=== PATIENT | male | born 1970 | race Two or more races ===

== ENCOUNTER 2019-03-03 13:20 | Inpatient (IN) | payer BC ==
[~2019-03-03] VITALS: Ht 170.2 cm; Wt 120.4 kg
[2019-03-03] MEDS ORDERED: NITROGLYCERIN 0.4MG TABLET SL SL PRN (16:00)
[2019-03-03] MEDS ORDERED: ASPIRIN 81MG TABLET PO ONE (16:00)
[2019-03-03 16:22] LABS: BASOPHILS % 0.6 % (0.0-2.0); EOSINOPHILS % 3.1 % (0.0-5.0); HEMATOCRIT. 49.6 % (42.0-52.0); HEMOGLOBIN. 16.9 g/dL (14.0-18.0); LYMPHOCYTES % 26.7 % (20.0-50.0); MEAN CORPUSCULAR HEMOGLOBIN 30.4 pg (28.0-32.0); MEAN CORPUSCULAR VOLUME 89.1 fL (80.0-94.0); MEAN PLATELET VOLUME 7.6 fl (7.4-10.4); MONOCYTES % 10.5 % (2.0-8.0); NEUTROPHILS % 59.1 % (40.0-76.0); PLATELET 331 x1000/uL (130-400); RED BLOOD CELL COUNT 5.57 mill/uL (4.7-6.1)
[2019-03-03 16:23] LABS: CHLORIDE 111 mEq/L (98-107)
[2019-03-03] MEDS ORDERED: ONDANSETRON HCL 4MG/2ML INJ IV STA (16:44)
[2019-03-03] MEDS ORDERED: MORPHINE SULFATE 4 MG/ML CPJ (NOT FOR IM USE) IV STA (16:44)
[2019-03-03] MEDS ORDERED: ENOXAPARIN 120MG/0.8ML SYR SUBCUT ONE (16:45)
[2019-03-03] MEDS ORDERED: ACETAMINOPHEN 325MG TABLET PO PRN (17:45)
[2019-03-03] MEDS ORDERED: DOCUSATE SODIUM 100MG CAPSULE PO PRN (17:45)
[2019-03-03] MEDS ORDERED: ONDANSETRON HCL 4MG/2ML INJ IV PRN (17:45)
[2019-03-03] MEDS ORDERED: HYDROCODONE/ACETAMINOPHEN 5/325MG TABLET PO PRN (17:45)
[2019-03-03] MEDS ORDERED: MORPHINE SULFATE 2 MG/ML CPJ (NOT FOR IM USE) IV PRN (17:45)
[2019-03-03] MEDS ORDERED: CLONIDINE 0.1MG TABLET PO PRN (17:45)
[2019-03-03 22:00] VITALS: BP 138/84
[2019-03-04] VITALS (23 sets, daily range): BP systolic 57–166; BP diastolic 19–110
[2019-03-04 07:31] LABS: BASOPHILS % 0.7 % (0.0-2.0); HEMATOCRIT. 46.9 % (42.0-52.0); HEMOGLOBIN. 16.1 g/dL (14.0-18.0); LYMPHOCYTES % 28.6 % (20.0-50.0); MEAN CORPUSCULAR HEMOGLOBIN 30.7 pg (28.0-32.0); MEAN CORPUSCULAR VOLUME 89.2 fL (80.0-94.0); MEAN PLATELET VOLUME 7.8 fl (7.4-10.4); MONOCYTES % 10.5 % (2.0-8.0); NEUTROPHILS % 56.2 % (40.0-76.0); PLATELET 333 x1000/uL (130-400); RED BLOOD CELL COUNT 5.25 mill/uL (4.7-6.1); RED CELL DISTRIBUTION WIDTH 12.7 % (11.6-14.6)
[2019-03-04 08:21] LABS: CHLORIDE 110 mEq/L (98-107)
[2019-03-04 08:28] LABS: LDL CHOLESTEROL 172 mg/dL (5-100)
[2019-03-04 08:29] LABS: CREATINE KINASE 363 IU/L (39-308)
[2019-03-04 08:30] LABS: HDL CHOLESTEROL 29 mg/dL (40-59)
[2019-03-04 08:32] LABS: CREATINE KINASE MB FRACTION 3.8 ng/mL (0.5-3.6)
[2019-03-04] MEDS: AMLODIPINE 10MG TABLET PO SCH (08:37)
[2019-03-04] MEDS: ASPIRIN 81MG EC TABLET PO SCH (08:37)
[2019-03-04] MEDS ORDERED: ENOXAPARIN 30MG/0.3ML SYR SUBCUT SCH (09:00)
[2019-03-04] MEDS ORDERED: NITROGLYCERIN 50MCG/ML 10ML VIAL (CATH LAB) IV ONE (11:03)
[2019-03-04] MEDS ORDERED: HEPARIN SODIUM 1,000 UNIT/1ML VIAL IV ONE (11:03)
[2019-03-04] MEDS ORDERED: LIDOCAINE HCL 1% 20ML VIAL (Pyxis) INJ ONE ×2 (12:38→15:29)
[2019-03-04] MEDS ORDERED: FENTANYL CITRATE/PF 50MCG/ML 2ML VIAL ONE ×4 (12:53→20:20)
[2019-03-04] MEDS ORDERED: MIDAZOLAM HCL 2 MG/2 ML VIAL ONE ×3 (12:53→16:19)
[2019-03-04] MEDS ORDERED: IOHEXOL-300 100 ML BOTTLE ONE (13:21)
[2019-03-04] MEDS ORDERED: CLOPIDOGREL 75MG TABLET ONE (13:50)
[2019-03-04] MEDS ORDERED: ASPIRIN 325MG EC TABLET PO ONE (13:50)
[2019-03-04] MEDS ORDERED: DOPAMINE 400MG/250ML PREMIX 250 ML IV ONE (14:55)
[2019-03-04] MEDS ORDERED: IODIXANOL 320MG/ML 200ML BOTTLE ONE (14:58)
[2019-03-04] MEDS ORDERED: HYDROMORPHONE HCL/PF 2MG/ML (OR) ONE (15:37)
[2019-03-04] MEDS ORDERED: BACITRACIN 15GM TUBE TOP ONE (16:16)
[2019-03-04] MEDS ORDERED: THROMBIN (BOVINE) 5000 UNITS/VIAL TOP ONE ×2 (16:16→16:17)
[2019-03-04] MEDS ORDERED: SKIN ADHESIVE 0.7 GM EA TOP ONE (16:16)
[2019-03-04] MEDS ORDERED: BACITRACIN 50,000 UNITS/VIAL ONE (16:17)
[2019-03-04] MEDS ORDERED: HEPARIN 1000 UNITS/ML 10ML ONE (16:18)
[2019-03-04] MEDS ORDERED: NOREPINEPHRINE 4 MG in DEXT 5% WATER 246 ML IV NR (17:00)
[2019-03-04] MEDS ORDERED: AMINOCAPROIC ACID 10,000 MG in SODIUM CHLORIDE 0.9% 460 ML IV SCH (17:00)
[2019-03-04] MEDS ORDERED: INSULIN REGULAR (DRIP) 100 UNITS in SODIUM CHLORIDE 0.9% 99 ML IV NR (17:00)
[2019-03-04] MEDS ORDERED: EPINEPHRINE 4 MG in DEXT 5% WATER 246 ML IV NR (17:00)
[2019-03-04] MEDS ORDERED: DOBUTAMINE HCL 250 MG in DEXT 5% WATER 230 ML IV NR (17:00)
[2019-03-04] MEDS ORDERED: CEFAZOLIN 2,000 MG in DEXT 5% WATER 100 ML IV NR (17:00)
[2019-03-04] MEDS ORDERED: PHENYLEPHRINE 10 MG in DEXT 5% WATER 249 ML IV NR (17:00)
[2019-03-04] MEDS ORDERED: DEL NIDO ELECTROLYTE-S(PH 7.4) 1,000 ML IV SCH (17:00)
[2019-03-04] MEDS ORDERED: DOBUTAMINE 250MG PREMIX 250 ML IV NR (17:00)
[2019-03-04] MEDS ORDERED: PAPAVERINE HCL 180MG in SODIUM CHLORIDE 0.9% 24ML IV NR (17:00)
[2019-03-04] MEDS ORDERED: NICARDIPINE 50 MG in NS 250 ML IV NR (17:00)
[2019-03-04] MEDS ORDERED: SUCCINYLCHOLINE CHLORIDE 200MG/10ML IV ONE (17:12)
[2019-03-04] MEDS ORDERED: ATROPINE SULFATE 1MG/10ML SYR IV PRN (17:30)
[2019-03-04] MEDS ORDERED: ACETAMINOPHEN 325MG TABLET PO PRN (17:30)
[2019-03-04] MEDS ORDERED: HEPARIN 10,000 UNITS/ML VIAL ONE (17:33)
[2019-03-04] MEDS ORDERED: MAGNESIUM SULFATE 5GM/10ML VIAL IV ONE (19:34)
[2019-03-04] MEDS ORDERED: NITROGLYCERIN 50MG PREMIX 250 ML IV PRN (19:55)
[2019-03-04] MEDS ORDERED: DEXT 5%/0.45% NACL 1000ML 1,000 ML IV SCH (19:55)
[2019-03-04] MEDS ORDERED: DOPAMINE 400MG/250ML PREMIX 250 ML IV PRN (19:55)
[2019-03-04] MEDS ORDERED: SODIUM CHLORIDE 0.9% 500 ML IV PRN (19:55)
[2019-03-04] MEDS ORDERED: MAGNESIUM 2 G PREMIX 50 ML IV PRN (20:00)
[2019-03-04] MEDS ORDERED: CALCIUM CHLORIDE 3,000 MG in DEXT 5% WATER 250 ML IV PRN (20:00)
[2019-03-04] MEDS ORDERED: EPINEPHRINE 1 MG in DEXT 5% WATER 250 ML IV SCH (20:00)
[2019-03-04] MEDS ORDERED: OXYCODONE HCL/ACETAMINOPHEN 5/325MG TABLET PO PRN (20:00)
[2019-03-04] MEDS ORDERED: MAGNESIUM SULFATE 3 GM in DEXT 5% WATER 100 ML IV PRN (20:00)
[2019-03-04] MEDS ORDERED: MAGNESIUM 1 G PREMIX 100 ML IV PRN (20:00)
[2019-03-04] MEDS ORDERED: MORPHINE SULFATE 2 MG/ML CPJ (NOT FOR IM USE) IV PRN (20:00)
[2019-03-04 20:56] LABS: BG BASE EXCESS -5.7 mmol/L (-2.0-2.0); BG CARBOXYHEMOGLOBIN 0.7 % (0.5-1.5); BG DEOXYHEMOGLOBIN 4.8 % (0.0-5.0); BG FRACTION INSPIRED OXYGEN 100; BG HCO3 ACT 22.9 mmol/L (22.0-26.0); BG METHEMOGLOBIN 0.2 % (0.0-1.5); BG OXYGEN SATURATION 95.2 % (92.0-98.5); BG OXYHEMOGLOBIN 94.3 % (94.0-97.0); BG PCO2 57.8 mmHg (35.0-45.0); BG PH 7.216 (7.350-7.450); BG SAMPLE SITE A-LINE; BG TOTAL HEMOGLOBIN 15.2 g/dL (12.0-18.0); BG VENT MODE MASK - NRB
[2019-03-04] MEDS ORDERED: METOPROLOL TARTRATE 50MG TABLET PO SCH (21:00)
[2019-03-04 21:10] LABS: CHLORIDE 106 mEq/L (98-107); PROTHROMBIN TIME 10.2 sec (9.6-11.0)
[2019-03-04 21:11] LABS: BASOPHILS % 0.2 % (0.0-2.0); EOSINOPHILS % 0.2 % (0.0-5.0); HEMATOCRIT. 41.1 % (42.0-52.0); HEMOGLOBIN. 13.8 g/dL (14.0-18.0); LYMPHOCYTES % 7.2 % (20.0-50.0); MEAN CORPUSCULAR HEMOGLOBIN 29.9 pg (28.0-32.0); MEAN CORPUSCULAR VOLUME 89.2 fL (80.0-94.0); MEAN PLATELET VOLUME 7.5 fl (7.4-10.4); MONOCYTES % 8.2 % (2.0-8.0); NEUTROPHILS % 84.2 % (40.0-76.0); PLATELET 302 x1000/uL (130-400); RED BLOOD CELL COUNT 4.61 mill/uL (4.7-6.1); RED CELL DISTRIBUTION WIDTH 12.9 % (11.6-14.6)
[2019-03-04] MEDS ORDERED: NALOXONE HCL 1 MG/ML 2ML VIAL ONE (21:13)
[2019-03-04 21:35] LABS: BG CARBOXYHEMOGLOBIN 0.5 % (0.5-1.5); BG DEOXYHEMOGLOBIN 4.8 % (0.0-5.0); BG FRACTION INSPIRED OXYGEN 100; BG HCO3 ACT 18.8 mmol/L (22.0-26.0); BG METHEMOGLOBIN 0.1 % (0.0-1.5); BG OXYGEN SATURATION 95.2 % (92.0-98.5); BG OXYHEMOGLOBIN 94.6 % (94.0-97.0); BG PCO2 34.8 mmHg (35.0-45.0); BG PO2 75.5 mmHg (75.0-100.0); BG SAMPLE SITE A-LINE; BG TOTAL HEMOGLOBIN 13.9 g/dL (12.0-18.0); BG VENT MODE MASK - NRB
[2019-03-04] MEDS ORDERED: SODIUM BICARBONATE 8.4% 1 MEQ/ML 50ML SYR IV SCH (21:45)
[2019-03-04] MEDS ORDERED: KCL 10MEQ/50ML PREMIX 50 ML IV PRN (21:45)
[2019-03-04] MEDS: KETOROLAC 30MG/ML VIAL IV SCH (22:01)
[2019-03-04 22:41] LABS: BG CARBOXYHEMOGLOBIN 0.5 % (0.5-1.5); BG DEOXYHEMOGLOBIN 1.3 % (0.0-5.0); BG FRACTION INSPIRED OXYGEN 100; BG HCO3 ACT 24.3 mmol/L (22.0-26.0); BG METHEMOGLOBIN 0.1 % (0.0-1.5); BG OXYGEN SATURATION 98.7 % (92.0-98.5); BG OXYHEMOGLOBIN 98.1 % (94.0-97.0); BG PCO2 42.8 mmHg (35.0-45.0); BG PH 7.372 (7.350-7.450); BG PO2 160.7 mmHg (75.0-100.0); BG SAMPLE SITE A-LINE; BG TOTAL HEMOGLOBIN 14.1 g/dL (12.0-18.0); BG VENT MODE MASK - NRB
[2019-03-04] MEDS ORDERED: KCL 10MEQ/50ML PREMIX 50 ML IV SCH (22:45)
[2019-03-04] MEDS ORDERED: LORAZEPAM 2MG/ML CPJ IV PRN (23:15)
[2019-03-04] MEDS ORDERED: HALOPERIDOL LACTATE 5MG/ML VIAL IM PRN (23:15)
[2019-03-05] VITALS (84 sets, daily range): BP systolic 0–146; BP diastolic 0–92
[2019-03-05] MEDS: IPRATROPIUM/ALBUTEROL 0.5-3(2.5)MG/3ML NEB HHN SCH ×5 (00:27→20:38)
[2019-03-05] MEDS ORDERED: LACTATED RINGERS 500ML 500 ML IV SCH (00:30)
[2019-03-05] MEDS ORDERED: LACTATED RINGERS 1,000 ML IV SCH (00:45)
[2019-03-05] MEDS: CEFAZOLIN 1000MG PREMIX 50 ML IV SCH ×3 (01:16→17:18)
[2019-03-05] MEDS ORDERED: FUROSEMIDE 40MG/4ML VIAL IVP NR ×2 (01:45→06:30)
[2019-03-05] MEDS: KETOROLAC 30MG/ML VIAL IV SCH ×3 (02:01→14:11)
[2019-03-05 03:08] LABS: HEMATOCRIT. 38.3 % (42.0-52.0); HEMOGLOBIN. 13.2 g/dL (14.0-18.0); MEAN CORPUSCULAR HEMOGLOBIN 30.2 pg (28.0-32.0); MEAN CORPUSCULAR VOLUME 87.5 fL (80.0-94.0); PLATELET 292 x1000/uL (130-400); RED BLOOD CELL COUNT 4.38 mill/uL (4.7-6.1); RED CELL DISTRIBUTION WIDTH 12.7 % (11.6-14.6)
[2019-03-05 03:18] LABS: CHLORIDE 105 mEq/L (98-107)
[2019-03-05] MEDS ORDERED: IBUPROFEN 400MG TABLET PO PRN (06:30)
[2019-03-05] MEDS: CLOPIDOGREL 75MG TABLET PO SCH (08:53)
[2019-03-05] MEDS: DOCUSATE SODIUM 100MG CAPSULE PO SCH ×2 (08:54→17:19)
[2019-03-05] MEDS: FUROSEMIDE 40MG TABLET PO SCH (08:54)
[2019-03-05] MEDS: BACITRACIN 15GM TUBE TOP SCH ×4 (08:55→17:19)
[2019-03-05] MEDS: ASPIRIN 81MG EC TABLET PO SCH (09:09)
[2019-03-05] MEDS: AMLODIPINE 10MG TABLET PO SCH (10:25)
[2019-03-05 12:32] LABS: PLATELET ESTIMATE NORMAL
[2019-03-05] MEDS ORDERED: ALBUMIN HUMAN 25GM/500ML (5%) IV NR (14:45)
[2019-03-05] MEDS: ALBUMIN HUMAN 25GM/100ML (25%) IV SCH ×3 (17:19→23:05)
[2019-03-05] MEDS ORDERED: CALCIUM CHLORIDE 5,000 MG in DEXT 5% WATER 500 ML IV NR (17:45)
[2019-03-05] MEDS: ATORVASTATIN CALCIUM 40MG TABLET PO SCH ×2 (21:00→21:27)
[2019-03-05] MEDS: INSULIN LISPRO 100 UNITS/ML SUBCUT SCH (21:00)
[2019-03-05] MEDS ORDERED: METOPROLOL TARTRATE 25MG TABLET PO SCH (21:00)
[2019-03-05] MEDS ORDERED: DEXTROSE 50% WATER 50ML SYRINGE IV PRN (21:00)
[2019-03-05] MEDS: BLOOD SUGAR DIAGNOSTIC STRIP TEST SCH (21:24)
[2019-03-06] VITALS (76 sets, daily range): BP systolic 85–153; BP diastolic 47–115
[2019-03-06] MEDS: IPRATROPIUM/ALBUTEROL 0.5-3(2.5)MG/3ML NEB HHN SCH ×6 (00:22→20:13)
[2019-03-06 05:54] LABS: CHLORIDE 105 mEq/L (98-107)
[2019-03-06 06:20] LABS: BG BASE EXCESS 0.3 mmol/L (-2.0-2.0); BG CARBOXYHEMOGLOBIN 0.7 % (0.5-1.5); BG DEOXYHEMOGLOBIN 5.1 % (0.0-5.0); BG FRACTION INSPIRED OXYGEN 36; BG METHEMOGLOBIN 0.3 % (0.0-1.5); BG OXYGEN SATURATION 94.8 % (92.0-98.5); BG OXYHEMOGLOBIN 93.9 % (94.0-97.0); BG PCO2 35.6 mmHg (35.0-45.0); BG PH 7.447 (7.350-7.450); BG PO2 74.7 mmHg (75.0-100.0); BG SAMPLE SITE RIGHT RADIAL; BG TOTAL HEMOGLOBIN 11.3 g/dL (12.0-18.0); BG VENT MODE NASAL CANNULA
[2019-03-06] MEDS: INSULIN LISPRO 100 UNITS/ML SUBCUT SCH ×4 (07:46→21:00)
[2019-03-06] MEDS: BLOOD SUGAR DIAGNOSTIC STRIP TEST SCH ×4 (07:46→21:00)
[2019-03-06] MEDS: AMLODIPINE 10MG TABLET PO SCH (07:50)
[2019-03-06] MEDS: DOCUSATE SODIUM 100MG CAPSULE PO SCH ×2 (08:32→17:12)
[2019-03-06] MEDS: CLOPIDOGREL 75MG TABLET PO SCH (08:32)
[2019-03-06] MEDS: ASPIRIN 81MG EC TABLET PO SCH (08:32)
[2019-03-06] MEDS: FUROSEMIDE 40MG TABLET PO SCH (08:32)
[2019-03-06] MEDS ORDERED: FUROSEMIDE 40MG/4ML VIAL IVP NR (15:15)
[2019-03-06] MEDS ORDERED: MAGNESIUM 4 G PREMIX 100 ML IV NR (16:30)
[2019-03-06] MEDS: METOPROLOL TARTRATE 25MG TABLET PO SCH (21:00)
[2019-03-06] MEDS ORDERED: METOPROLOL TARTRATE 25MG TABLET PO SCH (21:00)
[2019-03-06] MEDS: ATORVASTATIN CALCIUM 40MG TABLET PO SCH (22:43)
[2019-03-07] VITALS (21 sets, daily range): BP systolic 96–138; BP diastolic 55–83
[2019-03-07] MEDS: IPRATROPIUM/ALBUTEROL 0.5-3(2.5)MG/3ML NEB HHN SCH ×5 (00:16→14:04)
[2019-03-07 06:05] LABS: CHLORIDE 104 mEq/L (98-107)
[2019-03-07] MEDS ORDERED: KCL 10MEQ/50ML PREMIX 50 ML IV ONE (06:45)
[2019-03-07] MEDS ORDERED: KCL 10MEQ/50ML PREMIX 50 ML IV SCH (06:45)
[2019-03-07] MEDS: BLOOD SUGAR DIAGNOSTIC STRIP TEST SCH ×2 (07:51→12:33)
[2019-03-07] MEDS: INSULIN LISPRO 100 UNITS/ML SUBCUT SCH ×2 (07:51→12:20)
[2019-03-07] MEDS: KCL 10MEQ/50ML PREMIX 50 ML IV SCH ×3 (07:57→09:42)
[2019-03-07] MEDS: FUROSEMIDE 40MG TABLET PO SCH (08:04)
[2019-03-07] MEDS: CLOPIDOGREL 75MG TABLET PO SCH (08:04)
[2019-03-07] MEDS: ASPIRIN 81MG EC TABLET PO SCH (08:05)
[2019-03-07] MEDS: DOCUSATE SODIUM 100MG CAPSULE PO SCH (08:05)
[2019-03-07] MEDS: METOPROLOL TARTRATE 25MG TABLET PO SCH ×3 (08:06→09:41)
[2019-03-07 08:28] LABS: HEMATOCRIT 36.9 % (42.0-52.0); HEMOGLOBIN 12.3 g/dL (14.0-18.0); MEAN CORPUSCULAR HEMOGLOBIN 29.6 pg (28.0-32.0); MEAN CORPUSCULAR VOLUME 88.9 fL (80.0-94.0); PLATELET 268 x1000/uL (130-400); RED BLOOD CELL COUNT 4.15 mill/uL (4.7-6.1); RED CELL DISTRIBUTION WIDTH 12.8 % (11.6-14.6)
== END 2019-03-07 14:58 | disposition home or self-care (01) | DRG 231 ==
LOC: ER 13:20 → 5EST 16:51 → ENRESERV 20:13 → 5EST 21:13 → CVICU 03-04 19:13 → 3WST 03-07 11:31
PROVIDERS: ADMIT Hospitalist; ATTEND Hospitalist
PROC: 02100Z9 Bypass Coronary Artery, One Artery from Left Internal Mammary, Open Approach (ICD-10-PCS; principal; 2019-03-04)
PROC: 02100Z8 Bypass Coronary Artery, One Artery from Right Internal Mammary, Open Approach (ICD-10-PCS; 2019-03-04)
PROC: 027036Z Dilation of Coronary Artery, One Artery with Three Drug-eluting Intraluminal Devices, Percutaneous Approach (ICD-10-PCS; 2019-03-04)
PROC: 5A02210 Assistance with Cardiac Output using Balloon Pump, Continuous (ICD-10-PCS; 2019-03-04)
PROC: 4A023N7 Measurement of Cardiac Sampling and Pressure, Left Heart, Percutaneous Approach (ICD-10-PCS; 2019-03-04)
PROC: B211YZZ Fluoroscopy of Multiple Coronary Arteries using Other Contrast (ICD-10-PCS; 2019-03-04)
PROC: B215YZZ Fluoroscopy of Left Heart using Other Contrast (ICD-10-PCS; 2019-03-04)
DX: T82.867A Thrombosis due to cardiac prosthetic devices, implants and grafts, initial encounter (principal); I21.4 Non-ST elevation (NSTEMI) myocardial infarction; Z68.41 Body mass index [BMI] 40.0-44.9, adult; E78.5 Hyperlipidemia, unspecified; Y84.0 Cardiac catheterization as the cause of abnormal reaction of the patient, or of later complication, without mention of misadventure at the time of the procedure; I25.10 Atherosclerotic heart disease of native coronary artery without angina pectoris; E66.9 Obesity, unspecified; I10 Essential (primary) hypertension; Z95.5 Presence of coronary angioplasty implant and graft; Y92.89 Other specified places as the place of occurrence of the external cause; Z95.1 Presence of aortocoronary bypass graft; Z87.891 Personal history of nicotine dependence; Z71.6 Tobacco abuse counseling
CPT/HCPCS: 36415; 36600; 71045; 80048; 80053; 80061; 82375; 82550; 82553; 82805; 82962; 83735; 83880; 84484; 85025; 85027; 85347; 85520; 86850; 86900; 86920; 92928; 93005; 93306; 93458; 93970; 94640; 97116; 97163; 97166; 99285; C1725; C1726; C1729; C1751; C1758; C1769; C1874; C1887; C1893; J0330; J0690; J1170; J1250; J1265; J1644; J1650; J1815; J1885; J1940; J2060; J2250; J2270; J2310; J2370; J2405; J2440; J3010; J3475; J3480; J3490; J7040; J7050; J7060; J7120; J7620; L1830; L3908; P9041; P9047; Q9967

== ENCOUNTER 2019-04-03 20:18 | Emergency (ER) | payer BC ==
[~2019-04-03] VITALS: Ht 167.6 cm; Wt 107.0 kg
[2019-04-04 00:13] VITALS: BP 111/76
[2019-04-04 03:01] LABS: BASOPHILS % 1.5 % (0.0-2.0); EOSINOPHILS % 11.7 % (0.0-5.0); HEMATOCRIT. 42.8 % (42.0-52.0); HEMOGLOBIN. 14.5 g/dL (14.0-18.0); LYMPHOCYTES % 24.7 % (20.0-50.0); MEAN CORPUSCULAR VOLUME 88.4 fL (80.0-94.0); MEAN PLATELET VOLUME 7.3 fl (7.4-10.4); NEUTROPHILS % 51.1 % (40.0-76.0); PLATELET 275 x1000/uL (130-400); RED BLOOD CELL COUNT 4.84 mill/uL (4.7-6.1)
[2019-04-04 03:07] LABS: CLARITY URINE CLEAR (CLEAR); COLOR URINE YELLOW (YELLOW); KETONES URINE NEGATIVE (NEGATIVE); LEUKOCYTE ESTERASE URINE NEGATIVE (NEGATIVE); NITRITE URINE NEGATIVE (NEGATIVE); OCCULT BLOOD URINE NEGATIVE (NEGATIVE); PROTEIN URINE 2+ (NEGATIVE); UROBILINOGEN URINE 0.2 E.U./dL (0.2-1.0)
[2019-04-04 03:16] LABS: CHLORIDE 108 mEq/L (98-107)
== END 2019-04-04 06:45 | disposition home or self-care (01) ==
LOC: ER 20:18
DX: R22.43 Localized swelling, mass and lump, lower limb, bilateral (principal); R10.9 Unspecified abdominal pain; E78.00 Pure hypercholesterolemia, unspecified; Z95.1 Presence of aortocoronary bypass graft
CPT/HCPCS: 36415; 80053; 81003; 85025; 93970; 99284